=== PATIENT | male | born 1975 | race Native Hawaiian/Other Pacific Islander ===

== ENCOUNTER 2020-05-14 08:18 | Outpatient (CLI) | payer OTHER | END 2020-05-14 21:35 | disposition home or self-care (01) | LOC: MRI 08:18 | PROVIDERS: ATTEND Nurse Practitioner Family | DX: Z96.651 Presence of right artificial knee joint (principal); Z96.661 Presence of right artificial ankle joint; S99.911A Unspecified injury of right ankle, initial encounter ==

== ENCOUNTER 2020-12-18 08:08 | Outpatient (CLI) | payer OTHER ==
[~2020-12-18] VITALS: Ht 174 cm; Wt 104.3 kg
== END 2020-12-18 11:17 | disposition home or self-care (01) ==
LOC: INF 08:08
PROVIDERS: ATTEND Family Medicine
DX: Z23 Encounter for immunization (principal); U07.1 COVID-19
CPT/HCPCS: 96365; M0244

== ENCOUNTER 2021-05-29 13:10 | Outpatient (CLI) | payer OTHER ==
[~2021-05-29] VITALS: Ht 172.7 cm; Wt 110.7 kg
== END 2021-05-29 18:57 | disposition home or self-care (01) ==
LOC: INF 13:10
PROVIDERS: ATTEND Nurse Practitioner Family
DX: U07.1 COVID-19 (principal); Z23 Encounter for immunization
CPT/HCPCS: 96365; M0244